=== PATIENT | female | born 1965 ===

== ENCOUNTER → 2018-11-08 | Outpatient (REF) ==
--- NOTE | 2018-11-08 15:27 | REP ---
Lumbar spine three views: Vertebral body heights and alignment are normal. There is disc space narrowing and L5 S1 compatible with degenerative disc disease. Mineralization and pedicles are unremarkable. The facets and sacroiliac articulations are unremarkable. There are surgical clips in the abdominal right upper quadrant. Impression: L5 S1 degenerative disc disease. Electronically Signed by Walter Bhandari MD 11/08/2018 03:20 P
== END ==
LOC: M SMT 10:19
PROVIDERS: ATTEND Internal Medicine
DX: Z02.71 Encounter for disability determination (principal)